=== PATIENT | female | born 1995 | race Caucasian/White ===

== ENCOUNTER 2021-03-14 09:30 | Outpatient (RCR) | payer OTHER, SELFPAY ==
--- NOTE | 2020-12-20 09:39 | PTOPEVAL ---
INITIAL PHYSICAL THERAPY EVALUATION and PLAN OF CARE Thank you for referring Sara Franco to [facility].? Sara is scheduled to be seen for physical therapy? 2x/week for 4 weeks. Please review, sign, date and return this plan of care CLAUDIA. I agree with and certify that the following plan of care is medically necessary. Referring Physician Date Admitting Provider: Attending Provider: Nicole Flower MD Referring Provider: *PT Outpatient Evaluation Start: 12/20/20 08:12 Freq: Status: Active Protocol: Document 12/20/20 08:10 RADHA (Rec: 12/20/20 09:39 RADHA [id number]) Therapy Assessment Status Assessment Status Assessment Status Evaluation Outpatient Past Medical History Past Medical History Source of Past Medical History Patient Gastrointestinal History Hx Gastroesophageal Reflux Disease Yes Hx Irritable Bowel Yes Reproductive History Hx Other Reproductive Disorders Yes: polycystic ovarian syndrome Evaluation Information Problem Diagnosis vulvodynia Onset 5 years ago Subjective Information Always had discomfort with Query Text:As Reported By Patient/ intercourse - pain with Family insertion and with penetration . There are certain trigger points that cause increase in discomfort. Prior Level of Function Activity Level (Last 3 Months) Occupation homemaker [employer] Medications Home Meds (Include: OTC, RX, Vitamins, omeprazole Herbals, Dose, Route,and Frequency) Query Text:Home Med Entries Will No Longer Recall From Past Visits. Home Meds Must Be Re-entered With Each Visit. Comments Additional Prior Level of Function recreation - walking, Comments gardening Pain Assessment Timing of Pain Assessment Timing of Pain Assessment Assessment Pain Scale Pain Scale Used Numeric (1 - 10) Self Report Pain Assessment Vagina Reported Pain Level 1 Pain Description Pressure Other Pain Description very uncomfortable - always aware of female organ Lowest Pain Intensity 1 Greatest Pain Intensity 6 Other Pain Aggravating Factors intercourse Pain Score Pain Score 1: Self Report Interventions Used Interventions Used By Clinicians Manual Therapy Techniques Cervical and Lumbar ROM Lumbar ROM Lumbar ROM WNL Lumbar Comments + L Standing flexion test Lower Extremity Range of Motion General Lower Extremity Range of Motion Gross Lower Extremity Range of Motion mild decrease with R hip IR in Comments sitting, fairly
--- NOTE | 2021-01-10 17:14 | PTOPEVAL ---
RE-EVALUATION PHYSICAL THERAPY and UPDATED PLAN OF CARE Thank you for referring Sara Franco to [facility].? Sara is making slow gains towards goals set. Skilled PT is still appropriate for Sara ad she is being scheduled to be seen 2x/wkx 3 wks, then 1x/wk x 3 weeks. Please review, sign, date and return this plan of care CLAUDIA. I agree with and certify that the following plan of care is medically necessary. Referring Physician Date Admitting Provider: Attending Provider: Nicole Flower MD Referring Provider: Therapy Assessment Status Assessment Status Assessment Status Re-evaluation Evaluation Information Problem Diagnosis vulvodynia Subjective Information Sara reports 20-30% Query Text:As Reported By Patient/ improvement of pain and Family tightness in levator ani/ perineal region. Hasn't had intercourse with her . Still working on decreasing hardness of bowel movements - bowel massage, increase drinking of water. She says that she definitely feels more relaxed after treatment. Pain Assessment Self Report Pain Assessment Vagina Reported Pain Level 1 Lowest Pain Intensity 1 Greatest Pain Intensity 5 Pelvic Health Evaluation Pelvic Floor Assessment Permission Received for External/ Yes Internal Perineal Exam Internal Perineal Body Palpation marked tenderness and tissue tension at introitus and throughout levator ani musculature L>central>R. With time - able to promote increase with relaxation but increased L sided tightness and tenderness remained. Burning sensation present with release/relaxation of tissues . Additional Comments Discussion of bowel massage - pt was shown an alternative way to perform it. PT Clinical Summary Clinical Summary Protocol: PTEVCODE PT Clinical Summary Vulvar pain functional questionnaire - 16 pts Sara is making progress towards decreasing pelvic floor/perineal/levator ani tissue tension and discomfort. Having 20+ years of constipation has complicated and promoted increase in
--- NOTE | 2021-02-05 16:49 | PTOPEVAL ---
RE-EVALUATION PHYSICAL THERAPY AND UPDATED PLAN OF CARE Thank you for referring Sara Franco to [facility].? Sara continues to make gains in PT - but has not met goals set. Still recommending continuation of skilled PT 1x/week for 6 weeks. Please review, sign, date and return this plan of care CLAUDIA. I agree with and certify that the following plan of care is medically necessary. Referring Physician Date Admitting Provider: Attending Provider: Nicole Flower MD Referring Provider: Therapy Assessment Status Assessment Status Assessment Status Discharge Evaluation Information Problem Diagnosis vulvodynia Subjective Information Sara reports 40% improved. Query Text:As Reported By Patient/ Having less pain at rest and Family overall less pain. She and her have not had intercourse but continue to work on relaxing soft tissue tension in perineal and pelvic floor tissues. She did have a bout of constipation last few days - thinks it was because she was active and sweating and not able to drink enough liquids. Pain Assessment Timing of Pain Assessment Timing of Pain Assessment Assessment Pain Scale Pain Scale Used Numeric (1 - 10) Self Report Pain Assessment Vagina Reported Pain Level 2 Other Pain Description this is first day of menstrual cycle Lowest Pain Intensity 0 Greatest Pain Intensity 4 Pelvic Health Evaluation Pelvic Floor Assessment Permission Received for External/ Yes Internal Perineal Exam External Perineal Body Palpation externally - no increase in tissue tension or tenderness present Internal Perineal Body Palpation Tenderness present at introitus - circumferentially - but decrease in tissue tension present. internally levator ani - tenderness present throughout - more so with quicker movements - decrease with soft tissue tension - but still increased tension present with L levator ani Additional Comments symmetry with sacrum - but tenderness at R sacral base increased tenderness at sacral /coccygeal junction - no
--- NOTE | 2021-03-20 12:54 | PCPTNOTE ---
This treatment is being continued on visit number [id number]. Please see documentation on both accounts to view progress. Completed interventions, outcomes, and problems have been marked as Inactive to facilitate the copying of the Care plan routine for recurring accounts.
== END 2021-03-18 13:59 | disposition home or self-care (01) ==
LOC: ANHPT 09:30
PROVIDERS: PCP Obstetrics & Gynecology Gynecology; Visit Provider Obstetrics & Gynecology Gynecology
DX: R10.2 Pelvic and perineal pain (principal)
CPT/HCPCS: 97014; 97140; 97162; G0283

== ENCOUNTER 2021-06-17 08:00 | Outpatient (RCR) | payer OTHER, SELFPAY ==
--- NOTE | 2021-03-20 12:55 | PCPTNOTE ---
The treatment documented on this account is a continuation of the treatment documented on visit number [id number]. Please see documentation on both accounts to view progress. The Plan of Care has been transitioned and updated within the new V#. I have addressed and agree with the discipline specific Problems, Interventions, and Goals for the current certification period. Completed interventions, outcomes, and problems have been marked as Inactive to facilitate the copying of the Care plan routine for recurring accounts.
--- NOTE | 2021-04-15 13:42 | PTOPEVAL ---
INITIAL PHYSICAL THERAPY EVALUATION and PLAN OF CARE Thank you for referring Sara Franco to [facility].? Sara is already being seen for another diagnosis in PT. Will incorporated this referral into her current schedule of 1x/week for 6 weeks. Please review, sign, date and return this plan of care CLAUDIA. I agree with and certify that the following plan of care is medically necessary. Referring Physician Date Admitting Provider: Attending Provider: Mustapha Donald MD Referring Provider: *PT Outpatient Evaluation Start: 03/20/21 12:56 Freq: Status: Active Protocol: Document 04/15/21 08:03 RADHA (Rec: 04/15/21 10:02 RADHA [id number]) Therapy Assessment Status Assessment Status Assessment Status Evaluation Outpatient Past Medical History Past Medical History Source of Past Medical History Patient Gastrointestinal History Hx Gastroesophageal Reflux Disease Yes Hx Irritable Bowel Yes Reproductive History Hx Other Reproductive Disorders Yes: polycystic ovarian syndrome Evaluation Information Problem Diagnosis L Iliotibial band syndrome Onset since Spring 2020 Subjective Information Sara notices pain mid lateral Query Text:As Reported By Patient/ thigh - both sides - greater Family on L - notices when she is more physically active. Will have an achy discomfort - can keep her from sleeping. She did obtain a new bike - found it to be difficult to ride - physically - had discomfort in that area of her thigh afterwards. Will have the discomfort now with quick walking - will still perform leisure walking - will have mild discomfort with the walking - but will have increased discomfort afterwards. Will also get the discomfort with gardening. At times will have achiness for a few days. 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 Home Meds Must Be Re-entered With Each Visit. Pain Assessment Timing of Pa
--- NOTE | 2021-05-06 12:15 | PTOPEVAL ---
PHYSICAL THERAPY RE-EVALUATION and UPDATED PLAN OF CARE Thank you for referring Sara Franco to [facility].? Sara will continue to benefit from skilled PT for vulvodynia 1x/week for 6 weeks. She has made progress, but she is not at her goal level. Please review, sign, date and return this plan of care CLAUDIA. I agree with and certify that the following plan of care is medically necessary. Referring Physician Date Admitting Provider: Attending Provider: Nicole Flower MD Referring Provider: Therapy Assessment Status Assessment Status Assessment Status Re-evaluation Evaluation Information Problem Diagnosis vulvodynia Subjective Information Sara reports that she Query Text:As Reported By Patient/ continues to have sensitivity Family in the perineal/vagina region. Has had ~ 2 wks of constipation that she has not been able to resolve. The random lower abdominal/pelvic floor pain - sharpness, etc - is gone. Still having difficulty with intercourse - burning sensation present. Still unable to tampons. Using small ball for self massage in perineal area - helping, increase tolerance with use. Having less clenching sensation with buttocks and pelvic floor region since using small ball. Pain Assessment Timing of Pain Assessment Timing of Pain Assessment Assessment Pain Scale Pain Scale Used Numeric (1 - 10) Self Report Pain Assessment Lateral Thigh(s) Reported Pain Level 1 Vagina Reported Pain Level 2 Pain Description Burning Other Pain Description sensitivity when using rest room Lowest Pain Intensity 0 Greatest Pain Intensity 7 Pelvic Health Evaluation Pelvic Floor Assessment Permission Received for External/ Yes Internal Perineal Exam Internal Perineal Body Palpation increase in tenderness at introitus - entire circumference with increase in tenderness at 12 o'clock region levator ani - increase in tissue tension throughout - less painful with direct pressure - increase in discomfort with movement to new l
--- NOTE | 2021-05-27 11:19 | PCPTNOTE ---
Patient called & cancelled scheduled appointment this date due to unknown reason. Message left on voice mail.
--- NOTE | 2021-06-03 15:21 | PTOPEVAL ---
PHYSICAL THERAPY DISCHARGE SUMMARY Thank you for referring Sara Franco to [facility].? 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 She was seen x 7 visits for this diagnosis. She is to continue with her HEP on a regular basis. I will continue to follow her for her vulvodynia diagnosis. I agree with Sara's ITB syndrome discharge status. Referring Physician Date Admitting Provider: Attending Provider: Mustapha Donald MD Referring Provider: Therapy Assessment Status Assessment Status Assessment Status Re-evaluation Evaluation Information Problem Diagnosis Iliotibial band syndrome Subjective Information Sara reports that her lateral Query Text:As Reported By Patient/ thigh pain is random in nature Family - doesn't really notice the discomfort any more. Generally doing well with HEP. Sleeping well, no issues with walking. Pain Assessment Timing of Pain Assessment Timing of Pain Assessment Assessment Pain Scale Pain Scale Used Numeric (1 - 10) Self Report Pain Assessment Lateral Thigh(s) Reported Pain Level 0 Lower Extremity Muscle Strength Testing Hip Strength Bilateral Hip Strength Comments R hip abductor 5/5 L hip abductor 4+/5 Muscle Length Testing Muscle Length Testing Mari's Test Hip Muscle Length (R) WFL,(L) Mild Tightness Left Hamstring Length -35 Query Text:(90 - 90 Position) Right Hamstring Length -30 Query Text:(90 - 90 Position) Rehab Teaching Rehab Teaching Teaching Topic Rehab Teaching Topic Components Exercise,Home Program As Pertains To Technique Recipient Patient Learning Preferences Audio,Demonstration,Discussion ,One-on-One Instruction,Visual ,Written Barriers to Learning None Readiness to Learn Excellent Response Returns Demonstration, Verbalizes Understanding Method Discussion,Handout,One-On-One Instruction,Written Instruction Additional Rehab Teaching Comments upgraded HEP provided, to upgrade resistive bands for hip & core exercises PT Clinical Summary Clinical Summary Protocol: PTEVCODE PT Clinical Summary Sara has met goals set in regards to her ITB syndrome diagonsis. She has returned to all previous activity levels without thigh
--- NOTE | 2021-06-17 12:20 | PTOPEVAL ---
PHYSICAL THERAPY DISCHARGE SUMMARY Thank you for referring Sara Franco to [facility].? Sara has been seen x 22 visits. She is now ready for discharge to self treatment techniques of relaxation and soft tissue mobilization. She still has increase in discomfort with intercourse but overall reports less tissue tension and discomfort in her pelvic floor area with everyday life. Goals have been partially met. I agree with Sara's discharge from PT. Referring Physician Date Admitting Provider: Attending Provider: Nicole Flower MD Referring Provider: Therapy Assessment Status Assessment Status Assessment Status Discharge Evaluation Information Problem Diagnosis vulvodynia Subjective Information Sara reports that she did do Query Text:As Reported By Patient/ the pelvic floor exercises - Family doesn't feel that her pelvic floor will relax afterwards. Did forget to work with small ball for perineal relaxation this past week - did today and things feel better. Has not tried intercourse for awhile - would have this weekend but was cramping. Last time - did have the burning sensation with insertion and then could not fully tolerate entire length of intercourse. Pain Assessment Timing of Pain Assessment Timing of Pain Assessment Assessment Pain Scale Pain Scale Used Numeric (1 - 10) Self Report Pain Assessment Vagina Reported Pain Level 1 Lowest Pain Intensity 0 Greatest Pain Intensity 6 Pelvic Health Evaluation Pelvic Floor Assessment Permission Received for External/ Yes Internal Perineal Exam Internal Perineal Body Palpation increased tissue tension at introitus and first few mm past opening - justino at 6 o' clock region. More time needed for relaxation to occur at distal aspect of vaginal/ introitus tissues this date - but once relaxation occurred able to palpate rest of levator ani more easily. Increase with levator tightness in posterior region - 7-5 o'clock with increase in tightness 5-6 o'clock. Able to promote increase with relaxation with soft tissue
== END 2021-06-20 23:59 | disposition home or self-care (01) ==
LOC: ANHHIPT 08:00
PROVIDERS: PCP Obstetrics & Gynecology Gynecology; Visit Provider Obstetrics & Gynecology Gynecology
DX: R10.2 Pelvic and perineal pain (principal)
CPT/HCPCS: 97110; 97140; 97162

== ENCOUNTER 2024-03-11 08:05 | Outpatient (CLI) | payer OTHER, SELFPAY ==
--- NOTE | ~2024-03-11 | MMUS_ITS ---
EXAMINATION: MM diagnostic maya BI w mukesh, US breast BI complete HISTORY: Bilateral breast pain. Family history of breast cancer in mother at age 59. TECHNIQUE: Additional 3-D tomosynthesis images of the breasts were performed and synthetic 2-D images were generated. CAD analysis was submitted and interpreted. High resolution bilateral complete breas t ultrasound was performed. COMPARISON: None BREAST PARENCHYMAL COMPOSITION: Not dense: There are scattered areas of fibroglandular density. FINDINGS: MAMMOGRAPHIC FINDINGS: There are no suspicious masses, calcifications or architectural distortion in either breast to sugges t malignancy. ULTRASOUND: Complete bilateral US of all 4 quadrants of the breasts and retroareolar region was reviewed. Normal heterogeneous echotexture without focal solid or cystic mass. IMPRESSION: 1. No evidence for malignancy in either breast. 2. Routine yearly screening mammogram and regular clinical breast examination are recommended. BI-RADS Category 1: Negative Reviewed, dictated and finalized at location B. IMPRESSION: 1. No evidence for malignancy in either breast. 2. Routine yearly screening mammogram and regular clinical breast examination a re recommended. BI-RADS Category 1: Negative
== END 2024-03-11 08:06 | disposition home or self-care (01) ==
LOC: ANHIMG 08:09
DX: N64.4 Mastodynia (principal)
CPT/HCPCS: 76641; 77062; 77066; G0279